=== PATIENT | female | born 1990 | race Caucasian/White ===

== ENCOUNTER 2019-01-06 21:01 | Emergency (ER) | payer BC ==
[~2019-01-06] VITALS: Ht 162.6 cm; Wt 57.2 kg
[2019-01-06 21:14] VITALS: Ht 162.6 cm; Wt 57.2 kg
[2019-01-06 22:43] VITALS: BP 116/70; PULSE 72; RESP 16
== END 2019-01-06 22:43 | disposition home or self-care (01) ==
LOC: FTE 21:01
DX: H93.8X3 Other specified disorders of ear, bilateral (principal)
CPT/HCPCS: 99283